=== PATIENT | female | born 2000 | race Caucasian/White ===

== ENCOUNTER 2020-10-26 10:54 | Emergency (ER) | payer OTHER | END 2020-10-26 11:55 | disposition home or self-care (01) | LOC: JVIRT 10:54 | DX: R05 Cough (principal); R53.1 Weakness; Z20.828 Contact with and (suspected) exposure to other viral communicable diseases | CPT/HCPCS: C9803; G2012-GT; Q3014-GT; U0003 ==

== ENCOUNTER 2021-05-29 20:49 | Emergency (ER) | payer OTHER ==
[2021-05-29 20:57] VITALS: BP 130/87; PULSE 111; TEMP 99.2; BMI 20.1
[2021-05-29] MEDS ORDERED: diphenhydrAMINE HCL 50 MG CAPSULE ONE (21:01)
[2021-05-29] MEDS ORDERED: predniSONE 20 MG TABLET (UD) PO ONE (21:30)
[2021-05-29] MEDS ORDERED: predniSONE 20 MG TABLET (UD) ONE (21:35)
== END 2021-05-29 21:41 | disposition home or self-care (01) ==
LOC: FER 20:49
DX: L50.9 Urticaria, unspecified (principal)
CPT/HCPCS: 99283-25